=== PATIENT | male | born 1995 | race Two or more races ===

== ENCOUNTER 2023-08-18 18:59 | Inpatient (IN) | payer OTHER ==
[~2023-08-18] VITALS: Ht 172.7 cm; Wt 62.7 kg
[2023-08-18 19:52] LABS: BASOPHILS % (AUTO) 0.7 % (0.0-2.0); EOSINOPHILS % (AUTO) 2.3 % (1.0-6.0); HEMATOCRIT 45.2 % (41-53); HEMOGLOBIN 15.2 g/dL (13.5-17.5); LYMPHOCYTES # (AUTO) 2.5 K/uL (1.0-4.8); LYMPHOCYTES % (AUTO) 28.6 % (22.0-44.0); MEAN CORPUSCULAR HEMOGLOBIN 30.8 pg (26.0-34.0); MEAN CORPUSCULAR HGB CONC 33.7 G/dL (31.0-37.0); MEAN CORPUSCULAR VOLUME 92 fL (80-100); MONOCYTES # (AUTO) 0.7 K/uL (0.1-1.0); MONOCYTES % (AUTO) 8.2 % (2.0-9.0); NEUTROPHILS # (AUTO) 5.4 K/uL (1.8-7.7); NEUTROPHILS % (AUTO) 60.2 % (40.0-70.0); PLATELET COUNT (AUTO) 348 K/uL (150-450); RED BLOOD CELL COUNT(AUTO) 4.94 MIL/uL (4.50-5.90); WHITE BLOOD COUNT (AUTO) 8.9 K/uL (4.5-11.0)
[2023-08-18 20:03] LABS: ANION GAP 7 mmol/L (8-16); CALCIUM, TOTAL 8.5 mg/dL (8.8-10.5); CARBON DIOXIDE 29 mmol/L (22-29); CHLORIDE 101 mmol/L (98-107); CREATININE 0.84 mg/dL (0.60-1.30); GLOMERULAR FILTR. RATE CALC > 60 mL/min (>60); GLUCOSE,RANDOM 81 mg/dL (70-110); POTASSIUM 4.1 mmol/L (3.5-5.1); SODIUM SERUM 137 mmol/L (136-145); UREA NITROGEN, BLOOD 12 mg/dL (7-18)
[2023-08-18 20:09] LABS: ALANINE AMINOTRANSFERASE 131 U/L (12-78); ALBUMIN 3.7 g/dL (3.4-5.0); ALKALINE PHOSPHATASE 116 U/L (46-116); ASPARTATE AMINOTRANSFERASE 90 U/L (15-37); BILIRUBIN,TOTAL 0.7 mg/dL (0.1-1.0); TOTAL PROTEIN, SERUM 7.7 g/dL (6.4-8.2)
[2023-08-18 20:14] LABS: ALCOHOL, BLOOD (SERUM) < 3 mg/dL (0-10)
[2023-08-18] MEDS ORDERED: SODIUM CHLORIDE 0.9% 100 ML ONE (21:14)
[2023-08-18] MEDS ORDERED: IOHEXOL 350 MG/ML 100 ML VIAL ONE (21:14)
[2023-08-18] MEDS ORDERED: ONDANSETRON HCL 4 MG TABLET PO ONE (21:15)
[2023-08-18] MEDS ORDERED: ACETAMINOPHEN 500 MG TABLET PO ONE (21:15)
[2023-08-18] MEDS ORDERED: ACETAMINOPHEN 325 MG TABLET PO PRN (22:30)
[2023-08-18] MEDS ORDERED: ONDANSETRON HCL 4 MG/2 ML VIAL IVP PRN (22:30)
[2023-08-18 22:57] LABS: PH,URINE DRUG SCREEN 5.5 (5.0-8.0)
[2023-08-18 23:05] LABS: ALCOHOL, URINE DRUG SCREEN NEGATIVE (NEGATIVE); AMPHET/METH SCREEN,URINE NEGATIVE (NEGATIVE); BARBITURATE SCREEN, URINE NEGATIVE (NEGATIVE); BENZODIAZEPINES SCREEN,URINE NEGATIVE (NEGATIVE); CANNABINOID SCREEN,URINE NEGATIVE (NEGATIVE); COCAINE SCREEN,URINE NEGATIVE (NEGATIVE); METHADONE SCREEN, URINE NEGATIVE (NEGATIVE); OPIATE SCREEN,URINE NEGATIVE (NEGATIVE); PHENCYCLIDINE SCREEN,URINE NEGATIVE (NEGATIVE)
[2023-08-19] VITALS (7 sets, daily range): BP systolic 99–113; BP diastolic 53–63; PULSE 55–65; RESP 15–19; TEMP 97.4–98.1; O2SAT 96
[2023-08-19 00:33] LABS: COVID AG,FIA SOURCE NASAL SWAB
[2023-08-19] MEDS: 1: MAGNESIUM SULFATE 2 GM, MVI, ADULT NO.1 WITH VIT K 10 ML, THIAMINE 100 MG, FOLIC ACID IV SCH ×10 (00:39→11:24)
[2023-08-19 00:49] LABS: SARS-COV2 (COVID) ANTIGEN,FIA Negative (Negative)
[2023-08-19 06:51] LABS: BASOPHILS % (AUTO) 0.9 % (0.0-2.0); EOSINOPHILS % (AUTO) 3.3 % (1.0-6.0); HEMATOCRIT 40.8 % (41-53); HEMOGLOBIN 13.9 g/dL (13.5-17.5); LYMPHOCYTES # (AUTO) 2.3 K/uL (1.0-4.8); LYMPHOCYTES % (AUTO) 30.5 % (22.0-44.0); MEAN CORPUSCULAR VOLUME 91 fL (80-100); MONOCYTES # (AUTO) 0.8 K/uL (0.1-1.0); MONOCYTES % (AUTO) 11.2 % (2.0-9.0); NEUTROPHILS # (AUTO) 4.1 K/uL (1.8-7.7); NEUTROPHILS % (AUTO) 54.1 % (40.0-70.0); PLATELET COUNT (AUTO) 302 K/uL (150-450); RED BLOOD CELL COUNT(AUTO) 4.48 MIL/uL (4.50-5.90); RED CELL DISTRIBUTION WIDTH 13.8 % (11.5-14.5); WHITE BLOOD COUNT (AUTO) 7.5 K/uL (4.5-11.0)
[2023-08-19 07:04] LABS: ANION GAP 8 mmol/L (8-16); CALCIUM, TOTAL 8.3 mg/dL (8.8-10.5); CARBON DIOXIDE 27 mmol/L (22-29); CHLORIDE 103 mmol/L (98-107); CREATININE 0.81 mg/dL (0.60-1.30); GLOMERULAR FILTR. RATE CALC > 60 mL/min (>60); GLUCOSE,RANDOM 83 mg/dL (70-110); POTASSIUM 4.5 mmol/L (3.5-5.1); SODIUM SERUM 138 mmol/L (136-145); UREA NITROGEN, BLOOD 14 mg/dL (7-18)
[2023-08-19] MEDS ORDERED: LORazepam 2 MG TABLET PO PRN (08:45)
[2023-08-19] MEDS: DOCUSATE SODIUM 100 MG CAPSULE PO SCH ×2 (09:50→19:58)
[2023-08-19] MEDS ORDERED: SODIUM CHLORIDE 0.9% 1,000 ML ONE (11:17)
[2023-08-19] MEDS ORDERED: LORazepam 2 MG/ML VIAL IVP PRN (12:15)
[2023-08-20 04:03] VITALS: BP 114/75; PULSE 62; RESP 20; TEMP 97.4
[2023-08-20] MEDS ORDERED: LORazepam 2 MG TABLET PO PRN (07:00)
[2023-08-20 08:01] VITALS: BP 122/69; PULSE 63; RESP 18; TEMP 97.6
[2023-08-20] MEDS: DOCUSATE SODIUM 100 MG CAPSULE PO SCH (08:16)
[2023-08-20] MEDS ORDERED: MULTIVITAMINS WITH MINERALS, THERAPEUTIC TABLET PO SCH (09:00)
[2023-08-20] MEDS ORDERED: LORazepam 2 MG TABLET PO SCH (09:00)
[2023-08-20 15:22] VITALS: BP 116/70; PULSE 61; RESP 18; TEMP 98.3
[2023-08-22] MEDS ORDERED: LORazepam 1 MG TABLET PO PRN (07:00)
[2023-08-22] MEDS ORDERED: LORazepam 1 MG TABLET PO SCH (09:00)
[2023-08-23] MEDS ORDERED: LORazepam 1 MG TABLET PO PRN (07:00)
== END 2023-08-20 18:35 | DRG 896 ==
LOC: EMS 19:01 → 5S 08-19 01:00 → 6S 08-19 11:22
PROVIDERS: ADMIT Internal Medicine; ATTEND Internal Medicine
DX: F15.13 Other stimulant abuse with withdrawal (principal); E43 Unspecified severe protein-calorie malnutrition; K70.9 Alcoholic liver disease, unspecified; F10.139 Alcohol abuse with withdrawal, unspecified; Z68.21 Body mass index [BMI] 21.0-21.9, adult; Z71.41 Alcohol abuse counseling and surveillance of alcoholic; Z20.822 Contact with and (suspected) exposure to COVID-19
CPT/HCPCS: 74177; 80048; 80053; 80307; 83690; 83735; 85025; 99285; G0480; J3411; J3475; J3490; J7030; J7050; Q0162; Q9967